=== PATIENT | female | born 1955 | race Caucasian/White ===

== ENCOUNTER → 2025-02-08 11:18 | Outpatient (REF) | payer OTHER, SELFPAY ==
[2025-02-08 15:30] LABS: ALT (SGPT) 13 U/L (0-35); AST (SGOT) 17 U/L (14-36); Albumin 4.3 g/dl (3.5-5.0); Alkaline Phosphatase 71 U/L (38-126); HDL Cholesterol 96 mg/dl; LDL Cholesterol, Calculated 94 mg/dl; Total Protein 6.8 g/dl (6.3-8.2); Very Low Density Lipoprotein 16 mg/dl (0-30)
== END ==
LOC: HWWDC 11:18
PROVIDERS: ATTENDING PHYSICIAN Internal Medicine Hematology & Oncology
DX: C50.112 Malignant neoplasm of central portion of left female breast (principal)
CPT/HCPCS: 36415; 77063; 77067; 80061; 80076

== ENCOUNTER → 2025-02-28 12:13 | Outpatient (REF) | payer OTHER, SELFPAY | LOC: WDC 12:13 | PROVIDERS: ATTENDING PHYSICIAN Internal Medicine Hematology & Oncology | DX: R92.2 Inconclusive mammogram (principal) | CPT/HCPCS: 76641 ==